=== PATIENT | female | born 1980 | race Caucasian/White ===

== ENCOUNTER 2018-02-08 16:05 | Inpatient (IN) | payer OTHER ==
[~2018-02-08] VITALS: Ht 162.6 cm; Wt 73.5 kg
[~2018-02-08 16:05] MED LIST: DEXAMETHASONE SOD PHOS 4 MG/ML VIAL IVP ONE; EPHEDrine SULFATE 50 MG/ML VIAL IM ONE; KETOROLAC TROMETHAMINE 60 MG/2 ML VIAL IM ONE; METOCLOPRAMIDE HCL 5 MG/ML 2 ML VIAL IVP ONE; ONDANSETRON HCL 4 MG/2 ML VIAL IVP ONE; OXYTOCIN 10 UNITS/ML VIAL IM ONE; PHENYLEPHRINE HCL 10 MG/ML VIAL IVP ONE
[2018-02-08] MEDS ORDERED: RINGERS SOLUTION,LACTATED 1,000 ML IV ONE ×2 (16:43→16:45)
[2018-02-08] MEDS ORDERED: METOCLOPRAMIDE HCL 5 MG/ML 2 ML VIAL IVP ONE (16:45)
[2018-02-08] MEDS ORDERED: CITRIC ACID/SODIUM CITRATE 30 ML SOLUTION UDCUP PO ONE (16:45)
[2018-02-08] MEDS ORDERED: ASCO500 PO (16:49)
[2018-02-08] MEDS ORDERED: PREN-134 PO (16:49)
[2018-02-08 16:53] VITALS: BP 103/66
[2018-02-08] MEDS ORDERED: FentaNYL CITRATE-PF 100 MCG/2 ML VIAL ONE (16:53)
[2018-02-08] MEDS ORDERED: MORPHINE SULFATE/PF 0.5 MG/ML 10 ML AMP ONE (16:53)
[2018-02-08] MEDS ORDERED: CeFAZolin 2 GM/DEXTROSE 50 ML IV ONE (16:54)
[2018-02-08] MEDS ORDERED: GUM MASTIC/STORAX/MSAL/ALCOHOL LIQUID 0.67 ML VIAL TP ONE (17:01)
[2018-02-08 17:06] LABS: BASOPHILS % (AUTO) 0.8 % (0.0-2.0); EOSINOPHILS % (AUTO) 0.1 % (1.0-6.0); HEMATOCRIT 38.3 % (36-46); HEMOGLOBIN 13.2 g/dL (12.0-16.0); LYMPHOCYTES # (AUTO) 1.4 K/uL (1.0-4.8); MEAN CORPUSCULAR HEMOGLOBIN 32.9 pg (26.0-34.0); MEAN CORPUSCULAR HGB CONC 34.5 G/dL (31.0-37.0); MEAN CORPUSCULAR VOLUME 95 fL (80-100); MONOCYTES # (AUTO) 0.6 K/uL (0.1-1.0); MONOCYTES % (AUTO) 6.7 % (2.0-9.0); NEUTROPHILS # (AUTO) 7.2 K/uL (1.8-7.7); NEUTROPHILS % (AUTO) 77.4 % (40.0-70.0); PLATELET COUNT (AUTO)-OB 184 K/uL (150-450); RED BLOOD CELL COUNT(AUTO) 4.02 MIL/uL (4.00-5.20); RED CELL DISTRIBUTION WIDTH 13.7 % (11.5-14.5)
[2018-02-08] MEDS ORDERED: NALBUPHINE HCL 10 MG/ML VIAL IVP PRN ×3 (19:30)
[2018-02-08] MEDS ORDERED: DEXAMETHASONE SOD PHOS 4 MG/ML VIAL IVP PRN (19:30)
[2018-02-08] MEDS ORDERED: MEPERIDINE-PF 25 MG/ML SYRINGE IVP PRN (19:30)
[2018-02-08] MEDS ORDERED: ONDANSETRON HCL 4 MG/2 ML VIAL IVP PRN ×2 (19:30)
[2018-02-08] MEDS ORDERED: NALOXONE HCL 0.4 MG/ML VIAL IVP PRN (19:30)
[2018-02-08] MEDS ORDERED: FentaNYL CITRATE-PF 100 MCG/2 ML VIAL IVP PRN ×4 (19:30)
[2018-02-08] MEDS ORDERED: DiphenhydrAMINE HCL 50 MG/ML VIAL IVP PRN ×2 (19:30)
[2018-02-08 19:37] LABS: RUBELLA SCREEN (IGG) IMMUNE (IMMUNE)
[2018-02-08] MEDS ORDERED: OXYGEN THERAPY IH SCH ×4 (20:00)
[2018-02-08] MEDS ORDERED: RINGERS SOLUTION,LACTATED 1,000 ML IV SCH (20:51)
[2018-02-08] MEDS ORDERED: LANOLIN 7 GM OINTMENT TP PRN (21:00)
[2018-02-09] MEDS: KETOROLAC TROMETHAMINE 30 MG/ML VIAL IVP SCH ×2 (00:35→06:58)
[2018-02-09 06:26] LABS: BASOPHILS % (AUTO) 0.1 % (0.0-2.0); EOSINOPHILS % (AUTO) 0 % (1.0-6.0); HEMATOCRIT 31.1 % (36-46); HEMOGLOBIN 11.4 g/dL (12.0-16.0); LYMPHOCYTES # (AUTO) 0.7 K/uL (1.0-4.8); LYMPHOCYTES % (AUTO) 5.6 % (22.0-44.0); MEAN CORPUSCULAR HEMOGLOBIN 34.4 pg (26.0-34.0); MEAN CORPUSCULAR HGB CONC 36.5 G/dL (31.0-37.0); MEAN CORPUSCULAR VOLUME 94 fL (80-100); MONOCYTES # (AUTO) 0.8 K/uL (0.1-1.0); MONOCYTES % (AUTO) 6.3 % (2.0-9.0); NEUTROPHILS # (AUTO) 11.4 K/uL (1.8-7.7); PLATELET COUNT (AUTO)-OB 171 K/uL (150-450); RED CELL DISTRIBUTION WIDTH 13.4 % (11.5-14.5)
[2018-02-09] MEDS ORDERED: INFLUENZA VIRUS VACCINE QVS 2017-18 (3YR+)/PF 60 MCG/0.5 ML SYRINGE IM ONE (06:45)
[2018-02-09] MEDS: MAGNESIUM HYDROXIDE SUSPENSION 30 ML UDCUP PO SCH ×2 (12:46→20:52)
[2018-02-09] MEDS: IBUPROFEN 800 MG TABLET PO PRN ×2 (14:16→20:52)
[2018-02-09] MEDS ORDERED: IBUPROFEN 800 MG TABLET PO PRN (17:00)
[2018-02-09] MEDS ORDERED: OxyCODONE HCL/ACETAMINOPHEN 5-325 MG TABLET PO PRN ×2 (17:00)
[2018-02-10] MEDS: IBUPROFEN 800 MG TABLET PO PRN ×2 (04:55→11:56)
[2018-02-10] MEDS: MAGNESIUM HYDROXIDE SUSPENSION 30 ML UDCUP PO SCH (09:00)
[2018-02-10] MEDS ORDERED: HYDR-309 PO (12:40)
[2018-02-10] MEDS ORDERED: IBUP-2070 PO (12:44)
[2018-02-10] MEDS ORDERED: DSS100 PO (12:45)
[2018-02-10] MEDS ORDERED: FERR-89 PO (12:46)
== END 2018-02-10 14:45 | disposition home or self-care (01) | DRG 766 ==
LOC: 4S 16:05 → OBSVTOIN 16:05 → 4S 18:30
PROVIDERS: ADMIT Obstetrics & Gynecology; ATTEND Obstetrics & Gynecology
PROC: 10D00Z1 Extraction of Products of Conception, Low, Open Approach (ICD-10-PCS; principal; 2018-02-08)
PROC: 3E0234Z Introduction of Serum, Toxoid and Vaccine into Muscle, Percutaneous Approach (ICD-10-PCS; 2018-02-10)
DX: O34.211 Maternal care for low transverse scar from previous cesarean delivery (principal); Z23 Encounter for immunization; Z37.0 Single live birth; Z3A.39 39 weeks gestation of pregnancy
CPT/HCPCS: 80307; 86592; 86762; 86850; 86900; 86901; 86920; 87081; 87340; 90471; J0690; J1100; J1885; J2274; J2370; J2405; J2590; J2765; J3010; J3490; J7120